=== PATIENT | female | born 1995 | race Caucasian/White ===

== ENCOUNTER 2016-04-14 01:41 | Emergency (ER) | payer OTHER ==
[~2016-04-14] VITALS: Ht 165.1 cm; Wt 68.2 kg
[2016-04-14 01:43] VITALS: TEMP 97.7
[2016-04-14 03:50] VITALS: BP 105/71; PULSE 87
== END 2016-04-14 04:00 | disposition home or self-care (01) ==
LOC: COL.ER 01:41
DX: F10.120 Alcohol abuse with intoxication, uncomplicated (principal); Y90.8 Blood alcohol level of 240 mg/100 ml or more
CPT/HCPCS: J2405; J7030